=== PATIENT | female | born 1980 | race Hispanic/Latino ===

== ENCOUNTER 2019-04-21 08:32 | Outpatient (CLI) | payer BC ==
--- NOTE | 2019-04-21 09:20 | Mammography Report ---
BILATERAL DIGITAL SCREENING MAMMOGRAM WITH CAD INDICATION: Routine screening mammography. TECHNIQUE: Digital bilateral 2D mammography was obtained in the craniocaudal and mediolateral obliq ue projections. This examination was interpreted with the benefit of Computer-Aided Detection analysi s. COMPARISON: 04/15/2018, 03/27/2018, 02/13/2016, 10/04/2015. FINDINGS: Breast Density: The breasts are extremely dense, which lowers the sensitivity of mammography. No suspicious mass, microcalcifications, or architectural distortion. A few circumscribed and obscure d oval lesions are noted in both breasts. These show fluctuating size compared to multiple prior mamm ograms and are most consistent with cysts. A dominant large cyst measuring up to 7 cm in the left april ast centered at the 3:00 position is increased in size from prior exam. For reference, this was estim ated to measure 4.5 cm on 03/27/2018 mammogram. IMPRESSION: No evidence of breast malignancy. Increased size of dominant left 3:00 breast cyst, previously charac terized as benign on prior ultrasound. Recommend routine screening mammogram in one year. If the left breast cyst is symptomatic, ultrasound-guided aspiration may be considered for therapeutic purposes. BI-RADS Category 2: Benign. No mammographic evidence of malignancy. Recommend routine screening ma mmography in one year. A "normal" or negative report should not discourage follow up or biopsy of a clinically significant f inding. A written summary of these findings will be mailed to the patient. The patient will be entered into a mammography reporting system which will generate a reminder letter for the patient's next appointmen t at the appropriate interval. The [employer] recommends yearly mammograms starting at age 40 and continuing as l aki as a woman is in good health. Breast MRI is recommended for women with an approximate 20-25% or greater lifetime risk of breast cancer, including women with a strong family history of breast or ova candi cancer or who have been treated for Hodgkin's disease. Signer Name: Jamal Calhoun MD Signed: 04/21/2019 9:16 AM Workstation Name: [id number]
== END 2019-04-21 08:33 | disposition home or self-care (01) ==
LOC: SPVWC 08:32
PROVIDERS: ATTEND Surgery
DX: Z12.31 Encounter for screening mammogram for malignant neoplasm of breast (principal)
CPT/HCPCS: 77067

== ENCOUNTER 2020-04-26 10:27 | Outpatient (CLI) | payer OTHER ==
--- NOTE | 2020-04-26 12:32 | Mammography Report ---
DIGITAL SCREENING MAMMOGRAM WITH CAD, 04/26/2020 CLINICAL INFORMATION / INDICATION: Routine screening mammography. SCREENING MAMMOGRAM TECHNIQUE: Digital bilateral 2D mammography was obtained in the craniocaudal and mediolateral obliqu e projections. This examination was interpreted with the benefit of Computer-Aided Detection analysis . COMPARISON: 03/27/2018, 04/21/2019 FINDINGS: Breast Density: The breasts are extremely dense, which lowers the sensitivity of mammography. No dominant mass, suspicious calcifications, or architectural distortion in either breast. There is changing nodularity bilaterally. There is regression of the large cyst previously noted on t he left. There is a biopsy marking clip on the right. IMPRESSION: No mammographic evidence of malignancy. Follow up recommendation: Unless otherwise clinically indicated, recommend patient return to routine screening mammography at age 42. BI-RADS Category 2: Benign. A "normal" or negative report should not discourage follow up or biopsy of a clinically significant f inding. A written summary of these findings will be mailed to the patient. The patient will be entered into a mammography reporting system which will generate a reminder letter for the patient's next appointmen t at the appropriate interval. The [employer] recommends yearly mammograms starting at age 40 and continuing as l aki as a woman is in good health. Breast MRI is recommended for women with an approximate 20-25% or greater lifetime risk of breast cancer, including women with a strong family history of breast or ova candi cancer or who have been treated for Hodgkin's disease. Signer Name: Claudio Sorensen MD Signed: 04/26/2020 12:28 PM Workstation Name: [id number]
== END 2020-04-26 10:28 | disposition home or self-care (01) ==
LOC: SPVWC 10:27
PROVIDERS: ATTEND Surgery
DX: Z12.31 Encounter for screening mammogram for malignant neoplasm of breast (principal)
CPT/HCPCS: 77063; 77067